=== PATIENT | male | born 1950 | race Caucasian/White ===

== ENCOUNTER → 2016-11-04 | Outpatient (CLI) | payer MEDICARE, OTHER ==
[~2016-11-04] MED LIST: NORCO 5/3251 TABLET PO
== END | disposition home or self-care (01) ==
LOC: CDC 12:59
DX: R13.10 Dysphagia, unspecified (principal)
CPT/HCPCS: 93000

== ENCOUNTER 2016-11-07 09:54 | Day surgery (SDC) | payer OTHER ==
[~2016-11-07] VITALS: Ht 185.4 cm; Wt 62.2 kg
[2016-11-07 10:44] VITALS: BP 143/85
[2016-11-07] MEDS ORDERED: NORCO 5/3251 TABLET PO (12:17)
[2016-11-07 13:35] VITALS: BP 139/80
[2016-11-07 14:51] VITALS: BP 137/90
== END 2016-11-07 15:00 | disposition home or self-care (01) ==
LOC: SDC 09:54
PROC: 0DH63UZ Insertion of Feeding Device into Stomach, Percutaneous Approach (ICD-10-PCS; principal; 2016-11-07)
DX: R13.10 Dysphagia, unspecified (principal); E43 Unspecified severe protein-calorie malnutrition; G12.21 Amyotrophic lateral sclerosis; Z85.89 Personal history of malignant neoplasm of other organs and systems; Z92.3 Personal history of irradiation; Z80.3 Family history of malignant neoplasm of breast; Z82.49 Family history of ischemic heart disease and other diseases of the circulatory system
CPT/HCPCS: J2250; J3010

== ENCOUNTER → 2017-04-05 | Outpatient (CLI) | payer OTHER ==
[~2017-04-05] MED LIST changes: +RILUTEK50 MG PO; +ROBAFEN CF SYR118 M1 PO; +UNKONWN
== END | disposition home or self-care (01) ==
LOC: AMB 11:15
PROC: 0D20XUZ Change Feeding Device in Upper Intestinal Tract, External Approach (ICD-10-PCS; principal; 2017-04-05)
DX: K94.23 Gastrostomy malfunction (principal); C14.0 Malignant neoplasm of pharynx, unspecified
CPT/HCPCS: 99211